=== PATIENT | male | born 1930 | race Caucasian/White ===

== ENCOUNTER 2019-08-25 21:36 | Emergency (ER) | payer MEDICARE, BC | END 2019-08-25 21:44 | disposition E | LOC: ERS 21:36 | DX: I46.9 Cardiac arrest, cause unspecified (principal); K92.2 Gastrointestinal hemorrhage, unspecified; I25.2 Old myocardial infarction; Z86.73 Personal history of transient ischemic attack (TIA), and cerebral infarction without residual deficits | CPT/HCPCS: 92950 ==